=== PATIENT | female | born 1940 | race Caucasian/White ===

== ENCOUNTER 2016-10-24 11:06 | Day surgery (SDC) | payer MEDICARE, OTHER ==
--- NOTE | ~2016-10-24 | OP ---
Record Of Operation [facility] [address] [place]. [address] NAME: GEORGE SOL : 42 STATUS : [facility]#: [id number] AGE: 76 ADM/REG DATE : 10/24/16 MR#: [id number] REPORT SERV DATE: 10/24/16 DICTATED BY: GISEL OLIVAS III DATE: 10/24/16 REPORT STATUS : Draft TRANSCRIBED BY: MODL DATE: 10/24/16 DATE OF PROCEDURE: 10/24/2016 PROCEDURE: Cystoscopy, right retrograde, right ureteroscopic stone fragmentation and removal with holmium laser, insertion of double-J stent. PREOPERATIVE DIAGNOSIS: Right renal calculus. POSTOPERATIVE DIAGNOSIS: Right renal calculus. ANESTHESIA: General. DESCRIPTION OF PROCEDURE: Following induction of adequate general anesthesia, the patient was placed in dorsal lithotomy position, prepped and draped in a sterile fashion. The patient had a large cystocele. The bladder was examined and was unremarkable. The stent was grasped, pulled through the meatus and a wire was placed in the upper pole. An access sheath 11.36 was passed up to just below the UPJ obstruction. A safety wire was left in the sheath and the safety wire outside the sheath. The flexible scope was used to place the stone which was in the lower pole into an NGage basket and it was replaced into the upper pole. There was some bleeding and I removed several clots with the basket. The lasering was done with both dusting and fragmentation modes and it broke up quite easily. Seven or eight sizable fragments were removed. There were a number of small fragments too small to basket that were dusted. The bladder was examined after injecting dye and no significant fragments remained. A 10/24 inlay [place] was placed with a coil in the bladder and a coil in the kidney. Suture was taped to the abdomen for later removal. The patient tolerated the procedure well. OB/MODL Gisel Olivas III, M.D. / [id number]
[~2016-10-24 11:06] MED LIST: APRES25 PO; ATV.5 PO; CALTRA600D PO; CAT1 PO; CELEBREX2 PO; CIP5 PO; COZ25 PO; COZ50 PO; CYANO1000T PO; D.O.S.100 MG PO; DITRO5 PO; ELIQUIS 2.5 MG2.5 MG PO; ELIQUIS 5 MG TAB5 MG PO; FISH-EPA1000 MG PO; FLAXSEED OIL1000 MG PO; GARLIC; GARLIC PO; L20 PO; LOP50 PO; LOTREL1 CA1 PO; MSCONT15 PO; NASONEX NAS; NEXIUM20 M1 PO; NEXIUM40 PO; NORCO1 TA1 PO; NORV25 PO; NORV5 PO; OS500+D PO; OXYCON20 PO; PCET PO; PR12.5 PO; PYR100B PO; RESTORIL30 MG PO; VOLT50 PO; VOLT75 PO
[2016-10-28 15:46] LABS: STONE COMPOSITION TWO DNR (())
== END 2016-10-24 17:53 | disposition home or self-care (01) ==
LOC: SDC 11:06
PROVIDERS: Urology
PROC: 0T768DZ Dilation of Right Ureter with Intraluminal Device, Via Natural or Artificial Opening Endoscopic (ICD-10-PCS; 2016-10-24)
PROC: BT1D1ZZ Fluoroscopy of Right Kidney, Ureter and Bladder using Low Osmolar Contrast (ICD-10-PCS; 2016-10-24)
PROC: 0TF38ZZ Fragmentation in Right Kidney Pelvis, Via Natural or Artificial Opening Endoscopic (ICD-10-PCS; principal; 2016-10-24 12:45)
DX: N20.0 Calculus of kidney (principal); N13.5 Crossing vessel and stricture of ureter without hydronephrosis; I10 Essential (primary) hypertension; I48.91 Unspecified atrial fibrillation; G47.33 Obstructive sleep apnea (adult) (pediatric); M19.90 Unspecified osteoarthritis, unspecified site; M25.511 Pain in right shoulder; K21.9 Gastro-esophageal reflux disease without esophagitis; F41.9 Anxiety disorder, unspecified; Z98.890 Other specified postprocedural states; Z96.651 Presence of right artificial knee joint; Z88.2 Allergy status to sulfonamides; Z88.5 Allergy status to narcotic agent; Z88.8 Allergy status to other drugs, medicaments and biological substances; Z79.01 Long term (current) use of anticoagulants; Z79.2 Long term (current) use of antibiotics; Z79.899 Other long term (current) drug therapy; Z98.49 Cataract extraction status, unspecified eye; Z96.1 Presence of intraocular lens; Z96.641 Presence of right artificial hip joint; Z90.49 Acquired absence of other specified parts of digestive tract; Z90.710 Acquired absence of both cervix and uterus; Z87.442 Personal history of urinary calculi; Z87.440 Personal history of urinary (tract) infections
CPT/HCPCS: 74420; 82365; 88300; C1758; C1769; C1894; C2617; J2250; J2405; J2710; J3010; Q9967